=== PATIENT | male | born 1995 | race Caucasian/White ===

== ENCOUNTER 2017-05-14 00:50 | Emergency (ER) | payer OTHER ==
[~2017-05-14 00:50] MED LIST: DOXY-179 PO
--- NOTE | 2017-05-14 00:55 | ER Report ---
History and Physical Time Seen By MD: 00:55 HPI/ROS CHIEF COMPLAINT: Depression, suicidal ideation HISTORY OF PRESENT ILLNESS: 22-year-old male brought in by police after an argument with his girlfriend, which lasted all day long. Patient took a knife into the bathroom or at least his girlfriend thought he did. Patient was expressing that he wanted put a bullet to his head to his girlfriend. Patient denies drug or alcohol ingestion. Patient has some cut sanchez on his left arm from a few days ago. Patient denies previous psychiatric or mental health treatment. REVIEW OF SYSTEMS: Respiratory: No cough, no dyspnea. Cardiovascular: No chest pain, no palpitations. Gastrointestinal: No vomiting, no abdominal pain. Musculoskeletal: No back pain. Allergies: Coded Allergies: No Known Drug Allergies (Unverified , 05/14/17) Home Meds Discontinued Scripts Doxycycline Hyclate (DOXYCYCLINE HYCLATE) 100 Mg Tablet, 1 TAB PO BID, #20 TAB Prov:BERTHA NG MD 09/16/16 Reviewed Nurses Notes: Yes Old Medical Records Reviewed: Yes Smoking Status: Never Smoker Constitutional Vital Sign - Last 24 Hours 05/14/17 05/14/17 00:52 01:52 Temp 98.5 Pulse 81 69 Resp 14 14 B/P (MAP) 142/105 146/91 (109) Pulse Ox 96 95 O2 Delivery Room Air Room Air Physical Exam General Appearance: The patient is alert, has no immediate need for airway protection and no current signs of toxicity. HEENT: Pupils equal and round no injection. Oropharynx without redness or exudate, mucous membranes are moist Respiratory: Chest is non tender, lungs are clear to auscultation. Cardiac: regular rate and rhythm Gastrointestinal: Abdomen is soft and non tender, no masses, bowel sounds normal. Musculoskeletal: Neck: Neck is supple and non tender. No thyromegaly Extremities have full range of motion and are non tender. Skin: No rashes or lesions. DIFFERENTIAL DIAGNOSIS: After history and physical exam differential diagnosis was considered for depression including functional and major depression, situational depression, medication side effect, drugs and alcohol abuse. Medical Decision Making Data Points Result Diagram: 05/14/17 0107 05/14/17 0107 Laboratory Hematology Test 05/14/17 00:58 05/14/17 01:07 Urine Color Yellow Urine Clarity Cloudy Urine pH 6.0 pH (4.8-9.5) Urine Specific Marlow 1.019 Urine Protein Negative mg/dL (NEGATIVE) Urine Glucose (UA) Negative mg/dL (NEGATIVE) Urine Ketones Negative mg/dL (NEGATIVE) Urine Blood Negative (NEGATIVE) Urine Nitrite Negative (NEGATIVE) Urine Bilirubin Negative (NEGATIVE) Urine Urobilinogen Negative mg/dL (0.2-1.9) Urine Leukocyte Esterase Negative (NEGATIVE) Urine RBC None /HPF (0-2/HPF) Urine WBC None /HPF (0-5/HPF) Urine Squamous Epithelial Cells None /LPF (</=FEW) Urine Amorphous Crystals Few /HPF Urine Bacteria Negative /HPF (NONE-FEW) Urine Mucus Few /HPF (NONE-FEW) Urine Opiates Screen Negative Urine Barbiturates Screen Negative Ur Tricyclic Antidepressants Screen Negative Urine Phencyclidine Screen Negative Urine Amphetamines Screen Negative Urine Benzodiazepines Screen Negative Urine Cocaine Screen Negative Urine Cannabinoids Screen Negative Red Blood Count 5.73 M/uL (4.00-5.60) Mean Corpuscular Volume 87.8 fL (80.0-96.0) Mean Corpuscular Hemoglobin 30.6 pg (26.0-33.0) Mean Corpuscular Hemoglobin Concent 34.9 g/dL (32.0-36.0) Red Cell Distribution Width 14.3 % (11.5-14.5) Mean Platelet Volume 8.6 fL (7.2-11.1) Neutrophils (%) (Auto) 50.3 % (39.4-72.5) Lymphocytes (%) (Auto) 37.0 % (17.6-49.6) Monocytes (%) (Auto) 11.1 % (4.1-12.4) Eosinophils (%) (Auto) 1.0 % (0.4-6.7) Basophils (%) (Auto) 0.6 % (0.3-1.4) Nucleated RBC Relative Count (auto) 0.1 /100WBC Neutrophils # (Auto) 3.6 K/uL (2.0-7.4) Lymphocytes # (Auto) 2.6 K/uL (1.3-3.6) Monocytes # (Auto) 0.8 K/uL (0.3-1.0) Eosinophils # (Auto) 0.1 K/uL (0.0-0.5) Basophils # (Auto) 0.0 K/uL (0.0-0.1) Nucleated RBC Absolute Count (auto) 0.00 K/uL Sodium Level 144 mmol/L (137-145) Potassium Level 3.8 mmol/L (3.5-5.0) Chloride Level 103 mmol/L (98-107) Carbon Dioxide Level 28 mmol/L (22-30) Blood Urea Nitrogen 11 mg/dl (9-21) Creatinine 1.10 mg/dl (0.66-1.25) Glomerular Filtration Rate Calc > 60.0 Random Glucose 104 mg/dl (75-110) Calcium Level 9.5 mg/dl (8.4-10.2) Magnesium Level 2.2 mg/dl (1.7-2.2) Total Bilirubin 0.4 mg/dl (0.2-1.3) Aspartate Amino Transf (AST/SGOT) 113 U/L (0-35) Alanine Aminotransferase (ALT/SGPT) 133 U/L (0-56) Alkaline Phosphatase 100 U/L (0-126) Total Protein 7.4 gm/dl (6.3-8.2) Albumin 4.1 g/dl (3.5-5.0) Salicylates Level < 10 mg/L Salicylate Last Dose Date unk Acetaminophen Level < 10 ug/ml Serum Alcohol < 10 mg/dl Chemistry Test 05/14/17 00:58 05/14/17 01:07 Urine Color Yellow Urine Clarity Cloudy Urine pH 6.0 pH (4.8-9.5) Urine Specific Marlow 1.019 Urine Protein Negative mg/dL (NEGATIVE) Urine Glucose (UA) Negative mg/dL (NEGATIVE) Urine Ketones Negative mg/dL (NEGATIVE) Urine Blood Negative (NEGATIVE) Urine Nitrite Negative (NEGATIVE) Urine Bilirubin Negative (NEGATIVE) Urine Urobilinogen Negative mg/dL (0.2-1.9) Urine Leukocyte Esterase Negative (NEGATIVE) Urine RBC None /HPF (0-2/HPF) Urine WBC None /HPF (0-5/HPF) Urine Squamous Epithelial Cells None /LPF (</=FEW) Urine Amorphous Crystals Few /HPF Urine Bacteria Negative /HPF (NONE-FEW) Urine Mucus Few /HPF (NONE-FEW) Urine Opiates Screen Negative Urine Barbiturates Screen Negative Ur Tricyclic Antidepressants Screen Negative Urine Phencyclidine Screen Negative Urine Amphetamines Screen Negative Urine Benzodiazepines Screen Negative Urine Cocaine Screen Negative Urine Cannabinoids Screen Negative White Blood Count 7.1 k/uL (4.5-11.0) Red Blood Count 5.73 M/uL (4.00-5.60) Hemoglobin 17.5 g/dL (14.0-18.0) Hematocrit 50.3 % (42.0-52.0) Mean Corpuscular Volume 87.8 fL (80.0-96.0) Mean Corpuscular Hemoglobin 30.6 pg (26.0-33.0) Mean Corpuscular Hemoglobin Concent 34.9 g/dL (32.0-36.0) Red Cell Distribution Width 14.3 % (11.5-14.5) Platelet Count 189 K/uL (150-450) Mean Platelet Volume 8.6 fL (7.2-11.1) Neutrophils (%) (Auto) 50.3 % (39.4-72.5) Lymphocytes (%) (Auto) 37.0 % (17.6-49.6) Monocytes (%) (Auto) 11.1 % (4.1-12.4) Eosinophils (%) (Auto) 1.0 % (0.4-6.7) Basophils (%) (Auto) 0.6 % (0.3-1.4) Nucleated RBC Relative Count (auto) 0.1 /100WBC Neutrophils # (Auto) 3.6 K/uL (2.0-7.4) Lymphocytes # (Auto) 2.6 K/uL (1.3-3.6) Monocytes # (Auto) 0.8 K/uL (0.3-1.0) Eosinophils # (Auto) 0.1 K/uL (0.0-0.5) Basophils # (Auto) 0.0 K/uL (0.0-0.1) Nucleated RBC Absolute Count (auto) 0.00 K/uL Glomerular Filtration Rate Calc > 60.0 Calcium Level 9.5 mg/dl (8.4-10.2) Magnesium Level 2.2 mg/dl (1.7-2.2) Total Bilirubin 0.4 mg/dl (0.2-1.3) Aspartate Amino Transf (AST/SGOT) 113 U/L (0-35) Alanine Aminotransferase (ALT/SGPT) 133 U/L (0-56) Alkaline Phosphatase 100 U/L (0-126) Total Protein 7.4 gm/dl (6.3-8.2) Albumin 4.1 g/dl (3.5-5.0) Salicylates Level < 10 mg/L Salicylate Last Dose Date unk Acetaminophen Level < 10 ug/ml Serum Alcohol < 10 mg/dl Toxicology Test 05/14/17 00:58 05/14/17 01:07 Urine Opiates Screen Negative Urine Barbiturates Screen Negative Ur Tricyclic Antidepressants Screen Negative Urine Phencyclidine Screen Negative Urine Amphetamines Screen Negative Urine Benzodiazepines Screen Negative Urine Cocaine Screen Negative Urine Cannabinoids Screen Negative Salicylates Level < 10 mg/L Salicylate Last Dose Date unk Acetaminophen Level < 10 ug/ml Serum Alcohol < 10 mg/dl Urinalysis Test 05/14/17 00:58 Urine Color Yellow Urine Clarity Cloudy Urine pH 6.0 pH (4.8-9.5) Urine Specific Marlow 1.019 Urine Protein Negative mg/dL (NEGATIVE) Urine Glucose (UA) Negative mg/dL (NEGATIVE) Urine Ketones Negative mg/dL (NEGATIVE) Urine Blood Negative (NEGATIVE) Urine Nitrite Negative (NEGATIVE) Urine Bilirubin Negative (NEGATIVE) Urine Urobilinogen Negative mg/dL (0.2-1.9) Urine Leukocyte Esterase Negative (NEGATIVE) Urine RBC None /HPF (0-2/HPF) Urine WBC None /HPF (0-5/HPF) Urine Squamous Epithelial Cells None /LPF (</=FEW) Urine Amorphous Crystals Few /HPF Urine Bacteria Negative /HPF (NONE-FEW) Urine Mucus Few /HPF (NONE-FEW) ED Course/Re-evaluation ED Course Patient was admitted to an examination room. H&P was done. The differential diagnoses was considered. On clinical examination. Patient has stable vital signs. He appears in no acute distress. He is tearful, upset. States earlier he was expressing suicidal ideation. He has no current plan or expressions of suicidal ideation at present time. Diagnostic studies are unremarkable. His tox screen is negative. His alcohol level is 0. His Tylenol, aspirin levels are unremarkable. His LFTs are mildly elevated, unclear significance potentially fatty liver. 05/14/2017 1:33:06 am case discussed with Lala Campbell nurse practitioner a behavioral health service who accepts him for admission Decision to Disposition Date: May 14, 2017 Decision to Disposition Time: 01:32 Depart Departure Latest Vital Signs Vital Signs Date Time Temp Pulse Resp B/P (MAP) Pulse Ox O2 Delivery O2 Flow Rate FiO2 05/14/17 01:52 69 14 146/91 (109) 95 Room Air 05/14/17 00:52 98.5 Impression: Primary Impression: Depression with suicidal ideation Condition: Improved Disposition: XFER TO [facility] Referrals: BERTHA NG MD (PCP) New Scripts No Active Prescriptions or Reported Meds Date of Report: May 14, 2017 Patient Detained By: Law Enforcement 24hr Mental Health Eval By: Dr. Feroz Salgado Date Patient Detained: May 14, 2017 Time Patient Detained: 00:40 Date Fci Expires: May 18, 2017 Time Fci Expires: 00:40 Legal Status: Police Hold: No Legal Status: Relationship: Single Legal Status: Residence: [facility] Assessment Data Provided By: Patient, Law Enforcement Chief Complaint: Depression with suicidal ideation HPI/ROS: 26-year-old male brought in by police on an emergency senior living after expressing suicidal ideation to his girlfriend camilla. Patient states he wanted to put a bullet to his head. His girlfriend that he took a knife into the bathroom, was going to cut his wrist. Patient's been having an argument with his girlfriend all day long. Patient denies drug or alcohol ingestion. Patient denies previous suicidal attempts. Patient has several superficial well healed cut sanchez on his left forearm Current Dangerous Risk Assess: Current Suicide Ideation, Self-Injurious Behaviors Current Risk Summary: Patient was considered moderate risk. I will uphold the emergency senior living. Title 25 Evaluation Date of Report: May 14, 2017 ALEX SALGADO DO May 14, 2017 00:55
[2017-05-14 01:12] LABS: PLATELET COUNT, AUTOMATED 189 K/uL (150-450)
[2017-05-14 01:52] VITALS: BP 146/91
[2017-05-15] MEDS ORDERED: NIC10R INH (08:54)
== END 2017-05-14 02:00 ==
LOC: ER 00:56
DX: F32.9 Major depressive disorder, single episode, unspecified (principal); R45.851 Suicidal ideations
CPT/HCPCS: 36415; 80305; 80320; 80329; 81001; 82040; 82247; 82310; 82374; 82435; 82565; 82947; 83735; 84075; 84132; 84155; 84295; 84443; 84450; 84460; 84520; 85025; 99285

== ENCOUNTER 2017-05-14 01:49 | Inpatient (IN) | payer OTHER ==
[~2017-05-14] VITALS: Ht 177.8 cm; Wt 77.1 kg
[2017-05-14] MEDS ORDERED: hydrOXYzine PAMOATE 25 MG CAP PO PRN (03:00)
[2017-05-14 03:26] VITALS: BP 136/88
[2017-05-14 09:14] VITALS: BP 130/87
--- NOTE | 2017-05-14 13:17 | BHS - Psychiatric Evaluation ---
ER - Title 25 MHE Evaluation Title 25 Evaluation Patient Detained By: Physician (Dr. Raleigh Salgado), Law Enforcement Referral Source: Professional: Law Enforcement and Physician Date Patient Detained: May 14, 2017 Time Patient Detained: 00:40 Date Long Term Expires: May 18, 2017 Time Long Term Expires: 00:00 Legal Status: Police Hold: No Legal Status: Residence: [facility] Resident, [facility] Resident Assessment Data Provided By: Patient HPI/ROS: 26-year-old male brought in by police on an emergency fdc after expressing suicidal ideation to his girlfriend camilla. Patient states he wanted to put a bullet to his head. His told his girlfriend that he took a knife into the bathroom, was going to cut his wrist. Patient's been having an argument with his girlfriend all day long. Patient denies drug or alcohol ingestion. Patient denies previous suicidal attempts. Patient has several superficial well healed cut sanchez on his left forearm Admit due to SI or Attempt: Yes Suicide Plan: No Plan Alcohol or Drugs Involved: No Is Patient Info Reliable: Yes Is Collateral Info Reliable: Yes (3-81) Current Home Psych Meds: None Mental Status Exam General Appearance: Good Eye Contact, Tearful (Visibly upset about fdc process and close friends he has lost to suicide.) Speech: Clear, Spontaneous, Normal Rate, Normal Rhythm, Normal Volume, Normal Tone Mood: Dysthmic/Depressed (Slughtly depressed affect) Affect: Full and Appropriate, Sad, Anxious Thought Process: Organized, Goal Directed Thought Content: Suicidal Ideation (Denies any current ideation) Sensorium: Clear Cognition: Alert & Oriented-Person, Alert & Oriented-Place, Alert & Oriented- Time, Placv-Rqycdise-Sslvtqyen Memory: Immediate, Recent, Remote Insight Judgment: Poor Hallucinations: Denies Delusions: Denies Current Risk & History Current Dangerous Risk Assessm: Self-Injurious Behaviors (Made superficial cuts to his arm related to emotional difficulties and overwhelm.) Past Dangerous Risk Assessm: Self-Injurious Behaviors (Denies historical self injury.) Previous Suicide Attempt: No Previous Attempt Previous Psychiatric Illness: No Previous Psychiatric Treatment: No Risk Assessment & Disposition Evaluated Risk Assessment: Evaluated risk is medium to high. Patient denies current suicidality but was dysregulated, and decided to cut himself earlier in the week. He has been upset about finances, and does not have any outpatient support for stressors of school. 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 He stated to his girl friend that he felt suicidal, and although he says, "I wish I could take it back, I blurted it out," he is encouraged to acknowledge the drivers of his intense mood and address those problems with professional support. He may also be somewhat isolated. He is from [place], and is reluctant to share with his parents that he is at [facility], and has some life difficulties. Impression: Primary Impression: Depression with suicidal ideation Meets Mental Illness Req.: Yes Meets Dangerousness Req.: Yes Emergency Long Term to be: Upheld Decision Comment: Evaluated risk is medium to high. Patient denies current suicidality but was dysregulated, and decided to cut himself earlier in the week. He has been upset about finances, and does not have any outpatient support for stressors of school. He has 21 credits in Pre-Law. He stated to his girl friend that he felt suicidal, and although he says, "I wish I could take it back, I blurted it out," he is encouraged to acknowledge the drivers of his intense mood and address those problems with professional support. He may also be somewhat isolated. He is from [place], and is reluctant to share with his parents that he is at [facility], and has some life difficulties. He says has not experienced counseling. Date of Decision: May 14, 2017 Time of Decision: 13:40 Patient is Medically Stable at: Yes Disposition: [facility] May 14, 2017 13:17
[2017-05-14] MEDS: NICOTINE CARTRIDGE 1 EA PO PRN (14:43)
[2017-05-14] MEDS: NICOTINE INH SYSTEM 10 MG/INH INH PRN ×2 (14:43→19:36)
[2017-05-15 05:48] VITALS: BP 120/84
--- NOTE | 2017-05-15 06:49 | HISTORY AND PHYSICAL ---
DATE OF ADMISSION: May 14, 2017 DATE OF EVALUATION: May 14, 2017 at approximately 12:30 p.m. PRESENTING PROBLEM, CHIEF COMPLAINT "I got in an argument with my girlfriend, and I said I might as well end it." HISTORY OF PRESENT ILLNESS This is a 22-year-old male admitted to the unit under an emergency group home after he made a suicidal statement to his girlfriend, and she called the police. Police subsequently brought him to the emergency room, where he was evaluated and emergency detained by the emergency room physician. Patient denies that he was having suicidal thoughts prior to the argument. He denies that he was using any substances during the argument. He denies that he has ever been treated for depression or other mental illness. He is denying suicidal thoughts today. He does report that he cut on his right arm superficially with a kitchen knife three days ago. The area is witnessed to be very superficial on his right forearm. He says that he has never cut before, that he was feeling stressed at the time. He reports current stressors to be financial related to his current school loans. He denies that he has problems with excessive anxiety, denies substance abuse. He denies hallucinations. He denies paranoid thoughts. He is on no current medications. MENTAL HEALTH HISTORY He denies previous psychiatric hospitalizations. He denies previous psychiatric medications. He denies a history of suicide attempts. He did meet with a therapist one time when he was [age] years old, which was court ordered during his parents divorce. FAMILY PSYCHIATRIC HISTORY Denied. He is not aware of any mental illness or substance abuse in the family. He denies any suicides in the family. PAST MEDICAL HISTORY He denies any chronic or acute medical problems. SOCIAL HISTORY Patient was born in [place] and raised in [place], [place] since age [age]. He has two brothers, one older and one younger. He is currently single. He has never been , and has no children. 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 He reports that current grades are good. He has been in [place] for the past two years. TRAUMA HISTORY Denied. LEGAL HISTORY Denied. SUBSTANCE ABUSE HISTORY He denies using alcohol. He has tried it in the past, he says, but he has no regular or social use. Illicit drug use is denied. He has never tried any illicit substances. Tobacco: He does chew tobacco one can every two days. PHYSICAL EXAMINATION This is a well-developed, well-nourished 22-year-old male in no acute distress. Vital signs on admission: Temperature 98.5, pulse 69, blood pressure 136/88. Please see emergency room note for complete review of systems. LABORATORY DATA Laboratory data completed in the emergency room included hematology red blood slightly high at 5.73. Chemistries showed an AST at 113 and high and an ALT high at 133. Negative salicylates, acetaminophen and alcohol. Urinalysis within normal limits. Urine drug screen negative. MENTAL STATUS EXAMINATION GENERAL APPEARANCE, BEHAVIOR AND ATTITUDE: This is an alert 22-year-old male who appears his stated age. He is dressed in hospital scrubs per protocol. Grooming and hygiene appear within normal limits. He makes good eye contact and is cooperative with clinicians. No abnormal psychomotor activity is noted. SPEECH: Clear and spontaneous and of normal rate, rhythm and volume. MOOD: Patient describes mood as fine. AFFECT: Range full and mood congruent. THOUGHT PROCESSES: Overall logical and goal-directed, no loose associations or flight of ideas. THOUGHT CONTENT: Patient denies any suicidal thoughts. He denies homicidal thoughts. Denies obsessions or compulsions. Delusions: None elicited. He denies auditory, visual or other hallucinations. COGNITION: He is alert and oriented to person, place, day, date and situation. ESTIMATED INTELLIGENCE: Average, based upon interview. MEMORY: Immediate, recent and remote estimated grossly intact. INSIGHT AND JUDGMENT: Fair. He is not certain why he made suicidal statements , as he is reporting that he is not feeling depressed, and was not having suicidal statements prior to making that remark to his girlfriend. ASSESSMENT This is a 22-year-old male admitted to the unit under an emergency group home after making suicidal statements to his girlfriend. He did make statements that he would shoot himself with a gun. He does verbalize that his guns are in [place] at his mother's house. He is denying suicidal thoughts today. He is cooperative with the assessment process. DIAGNOSES PER DSM-V Adjustment disorder. PLAN 1. Patient is admitted to the unit. 2. Necessary precautions will be implemented. 3. The patient will participate in individual, group and milieu psychoeducation and therapy. 4. Collateral information to be obtained as necessary from his girlfriend and family. 5. Estimated length of stay less than 72 hours. MTDD
[2017-05-15] MEDS ORDERED: NIC10R INH (08:54)
[2017-05-15] MEDS: NICOTINE INH SYSTEM 10 MG/INH INH PRN (12:21)
[2017-05-15] MEDS: NICOTINE CARTRIDGE 1 EA PO PRN (12:21)
--- NOTE | 2017-05-16 16:11 | DISCHARGE SUMMARY ---
Patient was seen on the morning of May 15, 2017 at approximately 0930 hours. DIAGNOSES PER DSM-V Adjustment disorder with depressed mood secondary to argument with girlfriend, now resolved. Social stressors. Mild elevations in transaminases. Patient having supportive relationship with family and significant other overall. REASON FOR ADMISSION This is a 22-year-old male with no previous psychiatric history. Patient admitted under an emergency detained after voicing parasuicidal thoughts to his girlfriend after a verbal argument. Please see H and P for full details. Patient as admitted without incident. Patient appeared to be a very accurate historian, taking an active role in his treatment. Symptoms of concern quickly resolved while the patient was on the unit, and patient interacting well with significant other and mother on the phone, and they had no reservations about patient's discharge. PHYSICAL EXAMINATION GENERAL: Please see emergency room note. Notable for a polite, cooperative 22- year-old male in no apparent distress. VITAL SIGNS: At the time of admission, temperature 98.5, pulse 81, respiratory rate 14, blood pressure 142/105 and pulse oximetry 96 on room air. At the time of discharge from Behavioral Health Unit, vital signs showed a temperature of 98.1, pulse 85, respiratory rate 15, blood pressure 120/84 and pulse oximetry 94 on room air. LABORATORY DATA CBC was notable for RBCs elevated slightly at 5.73. Chemistry panel notable for AST and ALT elevated at 113 and 133 respectively. TSH 2.75. Urinalysis unremarkable overall and toxicology screen negative, with a nondetectable serum alcohol level. MENTAL STATUS EXAMINATION GENERAL APPEARANCE, BEHAVIOR AND ATTITUDE: This is a very polite, cooperative 22-year-old male. No psychomotor agitation or retardation was notable. Patient making good eye contact, interacting well with this provider, treatment team staff, and mother and significant other on telephone. No bizarre mannerisms or tics. No periods of tearfulness. SPEECH: Within normal limits, regular rate, rhythm volume and tone. MOOD: Described as good. AFFECT: Full and mood congruent. THOUGHT PROCESSES: Goal directed, logical. No loose associations or flight of ideas. THOUGHT CONTENT: Free of auditory or visual hallucinations, ideas of reference , thought broadcastings, delusions, obsessions, compulsions. Patient adamantly denying suicidal or homicidal ideation. SENSORIUM: Clear. COGNITION: Alert and oriented to person, place, time and situation. MEMORY: Immediate, recent and remote estimated intact. INTELLIGENCE: Average based on interview. INSIGHT AND JUDGMENT: Considered grossly intact and appropriate for ongoing outpatient management. RESULTS OF TESTING IMAGING: None. LABORATORY DATA: See above. CONSULTATIONS: None. TREATMENT Patient participated well in individual and group therapy. HOSPITAL COURSE This is a very pleasant 22-year-old male who appeared to be an overall accurate historian, admitting to stressors of ongoing verbal argument with his significant other. Patient voicing parasuicidal thoughts. Patient emergency detained. Patient quickly recovered and taking an active role in his treatment , interacting well with his significant other and his mother at the time of discharge. CONDITION OF PATIENT ON DISCHARGE Stable. Considered minimal risk to himself or others and appropriate for outpatient care. DISPOSITION Patient discharged to home in the care of responsible republican. Patient would follow up with outpatient counseling. No medications were prescribed. It was recommended that patient abstain from nicotine and use minimal [id number] supplements and was given the crisis line should symptoms return. Patient would follow up with elevated liver enzymes of unknown etiology in two months with primary care provider. Risks, benefits and alternatives of the above discharge plan were discussed. Informed consent was given to proceed with above discharge plan by this competent patient, patient's significant other and patient's mother at the time of discharge. RAMA
== END 2017-05-15 14:50 | disposition home or self-care (01) | DRG 881 ==
LOC: BHS 01:49
PROVIDERS: ADMIT Registered Nurse Psychiatric/Mental Health, Adult; ATTEND Registered Nurse Psychiatric/Mental Health, Adult
DX: F43.21 Adjustment disorder with depressed mood (principal); R45.851 Suicidal ideations; F17.220 Nicotine dependence, chewing tobacco, uncomplicated; Z63.0 Problems in relationship with spouse or partner; Z59.8 Other problems related to housing and economic circumstances
CPT/HCPCS: 90853